=== PATIENT | female | born 1960 | race African-American/Black ===

== ENCOUNTER 2019-04-10 18:30 | Emergency (ER) | payer MEDICARE, MEDICAID ==
[~2019-04-10] VITALS: Ht 162.6 cm; Wt 99.8 kg
--- NOTE | 2019-04-10 19:00 | NUR ---
CAME IN FOR BACK PAIN RADIATES TO BOTH LEGS FOR 3 MONS, MUCH WORSE TODAY. TO ER BED 11, HOOKED TO MONITOR, PROVIDED W WARM BLANKET, AWAITING MD ALICEA
--- NOTE | 2019-04-10 19:14 | NUR ---
TAYE JAMES AT BEDSIDE
[2019-04-10] MEDS ORDERED: DEXAMETHASONE SOD PHOSPHATE 4 MG/ML VIAL IM ONE (19:30)
[2019-04-10] MEDS ORDERED: KETOROLAC TROMETHAMINE INJ 60 MG/2 ML VIAL IM ONE (19:30)
--- NOTE | 2019-04-10 19:30 | NUR ---
REPORT GIVEN TO SELINA HERNANDEZ FOR [facility]
--- NOTE | 2019-04-10 19:35 | NUR ---
[facility] pt's jadyn. Found pt awake, resting in bed. A/ox4, verbal, able to make needs known. Respirations even and unlabored. Will continue to monitor pt and carry out MD orders.
[2019-04-10] MEDS ORDERED: DEXAMETHASONE SOD PHOSPHATE 10 MG/ML VIAL ONE (19:45)
[2019-04-10] MEDS ORDERED: KETOROLAC TROMETHAMINE INJ 30 MG/ML VIAL ONE (19:45)
[2019-04-10 20:23] VITALS: BP 138/72
--- NOTE | 2019-04-10 20:23 | NUR ---
PT OK TO [facility] PER PIERO KTOHARI. Patient discharged to home in stable condition. Written and verbal after care instructions given. Patient verbalizes understanding of instruction.Patient is awake and alert to self, day, and place. PT ambulatory with a steady gait
== END 2019-04-10 20:24 | disposition home or self-care (01) ==
LOC: ER 18:30
DX: M54.41 Lumbago with sciatica, right side (principal); M54.42 Lumbago with sciatica, left side; G89.29 Other chronic pain; F13.20 Sedative, hypnotic or anxiolytic dependence, uncomplicated; E66.9 Obesity, unspecified; Z68.30 Body mass index [BMI] 30.0-30.9, adult
CPT/HCPCS: 96372 ×2; 99283; J1100; J1885